=== PATIENT | male | born 1975 | race Caucasian/White ===

== ENCOUNTER → 2020-03-24 09:02 | Outpatient (CLI) | payer OTHER, SELFPAY ==
--- NOTE | 2020-03-24 09:03 | DI.RAD.S_ITS ---
PROCEDURE: XR CERVICAL SPINE 4V OR 5V INDICATIONS: neck pain TECHNIQUE: 5 views of the cervical spine acquired. COMPARISON: None. FINDINGS: Bones: No fractures or dislocations to the T1 level. Oblique images demonstrate bilateral right greater than left C5-6 bony foraminal stenoses. Moderate C6-7 degenerative disc disease. Soft tissues: No prevertebral soft tissue swelling. IMPRESSION: C6-7 degenerative disc disease is moderate, C5-6 facet osteoarthritis is [id number]. Foraminal stenosis appears greater on the right than the left at the C5-6 level. Dictated by: Mack Garcia M.D. on 03/24/2020 at 9:36 Approved by: Mack Garcia M.D. on 03/24/2020 at 9:37
== END ==
PROVIDERS: PCP Family Medicine; Referring Provider Physical Medicine & Rehabilitation; Visit Provider Physical Medicine & Rehabilitation
DX: M47.812 Spondylosis without myelopathy or radiculopathy, cervical region (principal); M50.323 Other cervical disc degeneration at C6-C7 level; M48.02 Spinal stenosis, cervical region
CPT/HCPCS: 72050